=== PATIENT | female | born 1965 | race Caucasian/White ===

== ENCOUNTER 2017-03-19 11:49 | Outpatient (CLI) | payer BC ==
[2017-03-19 12:15] LABS: #Basophils 0.1 thou/uL (0.0-0.2); #Eosinphils 0.1 thou/uL (0.0-0.7); #Lymphocytes 2.1 thou/uL (1.20-3.40); #Monocytes 0.5 thou/uL (0.11-0.59); #Neutrophils 4.6 thou/uL (1.40-6.50); %Basophils 0.7 % (0.0-1.0); %Eosinophils 1.4 % (0.0-10.0); %Lymphocytes 28.7 % (21.0-51.0); %Monocytes 6.4 % (0.0-10.0); %Neutrophils 62.7 % (42.0-75.0); Hemoglobin 13.5 g/dL (12.0-16.0); Mean Corpuscular HGB CONC 32.8 g/dL (32.0-36.0); Mean Corpuscular Hemoglobin 29.1 pg (27.0-31.0); Mean Corpuscular Volume 88.8 fl (81.0-99.0); Mean Platelet Volume 9.7 fL (7.4-10.4); Platelet Count 225 thou/uL (130-400); RBC Distribution Width 12.9 % (11.5-14.5); Red Blood Cell (RBC) Count 4.63 mill/uL (4.20-5.40); White Blood Cell (WBC) Count 7.3 thou/uL (4.8-10.8)
[2017-03-19 12:28] LABS: ALT (SGPT) 34 U/L (8-55); AST (SGOT) 21 U/L (5-34); Albumin 4.3 g/dL (3.5-5.0); Alkaline Phosphatase 155 U/L (40-150); Anion Gap 13 mmol/L (10-20); BUN (Urea Nitrogen) 15 mg/dL (7.0-18.7); Bilirubin, Total 0.4 mg/dL (0.2-1.2); Calc. Creatinine Clearance 0 mL/min (70-130); Calcium 10.2 mg/dL (7.8-10.44); Carbon Dioxide 23 mmol/L (22-29); Chloride 109 mmol/L (98-107); Cholesterol 209 mg/dl (< 200 Desired); Estimated GFR-MDRD 76; Glucose 91 mg/dL (70-105); HDL Cholesterol 30 mg/dL (>60 Neg Risk); LDL Cholesterol, Calculated 141 mg/dL; Potassium 4.2 mmol/L (3.5-5.1); Protein, Total 7.3 g/dL (6.0-8.3); Sodium 141 mmol/L (136-145); Triglycerides 191 mg/dL (Less than 150)
[2017-03-19 12:31] LABS: Hemoglobin A1c 5.9 % (4.0-6.0)
== END 2017-03-19 11:50 | disposition home or self-care (01) ==
LOC: HPCALD 11:49
PROVIDERS: ATTEND Family Medicine
DX: Z01.419 Encounter for gynecological examination (general) (routine) without abnormal findings (principal); E03.9 Hypothyroidism, unspecified; E88.81 Metabolic syndrome and other insulin resistance; E78.1 Pure hyperglyceridemia
CPT/HCPCS: 36415; 80053; 80061; 83036; 84443; 85025; 88142; G0123

== ENCOUNTER 2017-04-03 11:29 | Outpatient (CLI) | payer BC | END 2017-04-03 11:30 | disposition home or self-care (01) | LOC: HPCALD 11:29 | PROVIDERS: ATTEND Family Medicine | DX: M89.9 Disorder of bone, unspecified (principal) | CPT/HCPCS: 36415; 82306 ==

== ENCOUNTER 2017-05-28 16:33 | Outpatient (CLI) | payer BC ==
[2017-05-31 10:19] LABS: Antinuclear AB Negative (Negative)
== END 2017-05-28 16:34 | disposition home or self-care (01) ==
LOC: HPCALD 16:33
PROVIDERS: ATTEND Family Medicine
DX: M25.552 Pain in left hip (principal)
CPT/HCPCS: 36415; 85652; 86038; 86140; 86200; 86430

== ENCOUNTER 2017-05-28 16:46 | Outpatient (CLI) | payer BC ==
--- NOTE | 2017-05-28 18:11 | RAD ---
LEFT HIP TWO VIEWS: 05/28/17 No fracture was seen. The joint space is normal in width. There was no area of bony destruction. No particular arthritic change was noted. IMPRESSION: No significant findings. POS: HOME
== END 2017-05-28 16:47 | disposition home or self-care (01) ==
LOC: BURRAD 16:46
PROVIDERS: ATTEND Family Medicine
DX: M25.552 Pain in left hip (principal)
CPT/HCPCS: 36415; 85652; 86038; 86140; 86200; 86430